=== PATIENT | female | born 1930 | race Caucasian/White ===

== ENCOUNTER → 2016-10-30 | Outpatient (CLI) | payer MEDICARE ==
--- NOTE | 2016-10-30 13:51 | KCIC ---
EXAM: Chest, 2 views. HISTORY: Abnormal lung sounds. Cough. COMPARISON: 01/21/2016 FINDINGS: Frontal and lateral views of the chest are obtained. There is no infiltrate, effusion or pneumothorax. The heart is normal in size. There is hyperinflation due to emphysema or inspiratory effort. IMPRESSION: No acute pulmonary finding. Electronically signed by: Graciela Hernandez MD (10/30/2016 1:48 PM) [place] [id number]
== END | disposition home or self-care (01) ==
LOC: KCIC 13:09
PROVIDERS: ATTEND Family Medicine
DX: R09.89 Other specified symptoms and signs involving the circulatory and respiratory systems (principal); R05 Cough; Z87.01 Personal history of pneumonia (recurrent)
CPT/HCPCS: 71020